=== PATIENT | male | born 1995 | race Caucasian/White ===

== ENCOUNTER 2018-10-08 19:39 | Emergency (ER) | payer OTHER ==
[2018-10-08 19:53] VITALS: RESP 18
[2018-10-08] MEDS ORDERED: KETOROLAC 30 MG/ML 1 ML VIAL IVP STA (22:26)
[2018-10-08 22:53] LABS: Basophils % (A) 0 %; Eosinophils # (A) 0.1 k/uL (0-0.7); Eosinophils % (A) 1 %; HGB 14.8 gm/dL (13.0-17.5); Lymphocytes # (A) 1.7 k/uL (1.0-4.8); Lymphocytes % (A) 21 %; MCH 28.9 pg (25.0-35.0); MCHC 33.6 g/dL (31.0-37.0); Mean Platelet Volume 6.8; Monocytes # (A) 0.5 k/uL (0-1.0); Monocytes % (A) 6 %; Neutrophils # (A) 5.5 k/uL (1.3-7.7); Neutrophils % (A) 70 %; Platelet Count 191 k/uL (150-450); RBC 5.11 m/uL (4.30-5.90); RDW 13.6 % (11.5-15.5); WBC 7.8 k/uL (4.0-11.0)
[2018-10-08 23:05] LABS: ALT 23 U/L (21-72); AST 15 U/L (17-59); Albumin 4.1 g/dL (3.5-5.0); Alkaline Phosphatase 25 U/L (38-126); Anion Gap 10 mmol/L; Blood Urea Nitrogen 7 mg/dL (9-20); Calcium 9.7 mg/dL (8.4-10.2); Carbon Dioxide 26 mmol/L (22-30); Chloride 103 mmol/L (98-107); Creatine Kinase 78 U/L (55-170); Glucose 91 mg/dL (74-99); Potassium 3.6 mmol/L (3.5-5.1); Sodium 139 mmol/L (137-145); Total Bilirubin 0.7 mg/dL (0.2-1.3); Total Protein 6.5 g/dL (6.3-8.2)
[2018-10-08] MEDS ORDERED: DIPH,PERTUS(ACELL)TETVAC-LF 0.5 ML VIAL IM ONE (23:06)
--- NOTE | 2018-10-08 23:12 | ED ---
Skin/Abscess/FB HPI - General Chief complaint: Skin/Abscess/Foreign Body Stated complaint: tattoo infection Time Seen by Provider: 10/08/18 21:49 Source: patient Mode of arrival: ambulatory Limitations: no limitations - History of Present Illness Initial comments: 22-year-old male patient presents to the emergency department today for complaints of pain and swelling to his right lower leg. Patient states he got a tattoo to the area last night at someone's home. States was not a professional establishment. Patient states that today he has had significant pain and swelling to the right posterior ankle or the tattoo was performed. Patient states that the pain has been progressively worsening throughout the day and has become severe. Patient states that he feels like the pain is now shooting up his leg and feels like it is going to give out on him. States that he had to be carried to the car in order to get here. Denies taking any pain reliever or using any other non-pharmacological pain interventions for this. He denies any drainage from the area. Denies fever or chills. He is unsure when his last tetanus vaccine was given. He denies any history of immune compromise or IV drug use. Denies taking any medications. Patient denies any recent rash, shortness breath, chest pain, abdominal pain, nausea, vomiting, diarrhea, constipation, back pain, numbness, tingling, dizziness, weakness, hematuria, dysuria, urinary urgency, urinary frequency, headache, visual changes , or any other complaints. - Related Data Home Medications Medication Instructions Recorded Confirmed ARIPiprazole [Abilify] 10 mg PO DAILY 05/29/15 08/04/15 guanFACINE HCL [Intuniv] 1 mg PO DAILY 05/29/15 08/04/15 Previous Rx's Medication Instructions Recorded Cephalexin [Keflex] 500 mg PO Q6H #40 cap 10/09/18 Ibuprofen [Motrin] 600 mg PO Q8HR PRN #30 tab 10/09/18 Allergies Allergy/AdvReac Type Severity Reaction Status Date / Time No Known Allergies Allergy Verified 10/08/18 19:53 Review of Systems ROS Statement: Those systems with pertinent positive or pertinent negative responses have been documented in the HPI. ROS Other: All systems not noted in ROS Statement are negative. Past Medical History Past Medical History: No Reported History Additional Past Medical History / Comment(s): Viral meningitis, bipolar disorder , ADHD History of Any Multi-Drug Resistant Organisms: None Reported Past Surgical History: Appendectomy Past Psychological History: Bipolar Smoking Status: Current every day smoker Past Alcohol Use History: Occasional Past Drug Use History: Marijuana General Exam Limitations: no limitations General appearance: alert, in no apparent distress, other (This is a well- developed, well-nourished adult male patient in no acute distress. Vital signs upon presentation are temperature 98.4F, pulse 98, respirations 18, blood pressure 116/75, pulse ox 98% on room air.) Eye exam: Present: normal appearance, PERRL, EOMI. Absent: scleral icterus, conjunctival injection, periorbital swelling ENT exam: Present: normal exam, normal oropharynx, mucous membranes moist Respiratory exam: Present: normal lung sounds bilaterally. Absent: respiratory distress, wheezes, rales, rhonchi, stridor Cardiovascular Exam: Present: regular rate, normal rhythm, normal heart sounds. Absent: systolic murmur, diastolic murmur, rubs, gallop, clicks Extremities exam: Present: full ROM, tenderness (Tenderness to the right posterior ankle), normal capillary refill, other (There is swelling and erythema surrounding a tattoo in the right posterior ankle, very tender to touch. Skin is otherwise pink, warm, dry. Cap refills less than 3 seconds. Pedal pulses 2+ and equal bilaterally.). Absent: normal inspection, pedal edema , joint swelling, calf tenderness Neurological exam: Present: alert, oriented X3, CN II-XII intact Psychiatric exam: Present: normal affect, normal mood Skin exam: Present: warm, dry, intact, normal color. Absent: rash Course Vital Signs 10/08/18 10/08/18 10/09/18 19:50 22:04 00:51 Temperature 98.4 F 97.7 F 98.5 F Pulse Rate 98 61 92 Respiratory 18 18 18 Rate Blood Pressure 116/75 112/71 132/80 O2 Sat by Pulse 98 97 96 Oximetry Medical Decision Making - Medical Decision Making 22-year-old male patient presented to the emergency department today for evaluation of increased pain and swelling surrounding a new tattoo he obtained yesterday. Physical examination did reveal swelling and surrounding erythema to a tattoo on the right posterior ankle. Patient's skin is very tender to touch, patient reported severe pain. Labs were reviewed and showed a normal white blood cell count, CRP was only 12.5, hemoglobin and sodium levels normal. Patient's x-ray was negative for any evidence of subcutaneous air or bony distraction. I did discuss findings and results with the patient. We will start him on Keflex at this time and he is instructed to apply [id number] triple antibiotic ointment and to cleanse the wound twice daily with warm water and antibacterial soap. We did discuss signs or symptoms of worsening infection. He is instructed to return immediately should any of these signs or symptoms develop. He is also instructed to follow-up with his clinic to have the wound reevaluated in 1-2 days. Return parameters were discussed in detail. He verbalizes understanding and agrees with this plan. - Lab Data Result diagrams: 10/08/18 22:30 10/08/18 22:30 Lab Results 10/08/18 10/08/18 10/08/18 Range/Units 22:30 22:30 22:30 WBC 7.8 (4.0-11.0) k/uL RBC 5.11 (4.30-5.90) m/uL Hgb 14.8 (13.0-17.5) gm/dL Hct 44.0 (39.0-53.0) % MCV 86.0 (80.0-100.0) fL MCH 28.9 (25.0-35.0) pg MCHC 33.6 (31.0-37.0) g/dL RDW 13.6 (11.5-15.5) % Plt Count 191 (150-450) k/uL Neutrophils % 70 % Lymphocytes % 21 % Monocytes % 6 % Eosinophils % 1 % Basophils % 0 % Neutrophils # 5.5 (1.3-7.7) k/uL Lymphocytes # 1.7 (1.0-4.8) k/uL Monocytes # 0.5 (0-1.0) k/uL Eosinophils # 0.1 (0-0.7) k/uL Basophils # 0.0 (0-0.2) k/uL Sodium 139 (137-145) mmol/L Potassium 3.6 (3.5-5.1) mmol/L Chloride 103 (98-107) mmol/L Carbon Dioxide 26 (22-30) mmol/L Anion Gap 10 mmol/L BUN 7 L (9-20) mg/dL Creatinine 0.95 (0.66-1.25) mg/dL Est GFR (CKD-EPI)AfAm >90 (>60 ml/min/1.73 sqM) Est GFR (CKD-EPI)NonAf >90 (>60 ml/min/1.73 sqM) Glucose 91 (74-99) mg/dL Plasma Lactic Acid Alistair 0.8 (0.7-2.0) mmol/L Calcium 9.7 (8.4-10.2) mg/dL Total Bilirubin 0.7 (0.2-1.3) mg/dL AST 15 L (17-59) U/L ALT 23 (21-72) U/L Alkaline Phosphatase 25 L (38-126) U/L Creatine Kinase 78 (55-170) U/L C-Reactive Protein (<10.0) mg/L Total Protein 6.5 (6.3-8.2) g/dL Albumin 4.1 (3.5-5.0) g/dL 10/08/18 Range/Units 22:30 WBC (4.0-11.0) k/uL RBC (4.30-5.90) m/uL Hgb (13.0-17.5) gm/dL Hct (39.0-53.0) % MCV (80.0-100.0) fL MCH (25.0-35.0) pg MCHC (31.0-37.0) g/dL RDW (11.5-15.5) % Plt Count (150-450) k/uL Neutrophils % % Lymphocytes % % Monocytes % % Eosinophils % % Basophils % % Neutrophils # (1.3-7.7) k/uL Lymphocytes # (1.0-4.8) k/uL Monocytes # (0-1.0) k/uL Eosinophils # (0-0.7) k/uL Basophils # (0-0.2) k/uL Sodium (137-145) mmol/L Potassium (3.5-5.1) mmol/L Chloride (98-107) mmol/L Carbon Dioxide (22-30) mmol/L Anion Gap mmol/L BUN (9-20) mg/dL Creatinine (0.66-1.25) mg/dL Est GFR (CKD-EPI)AfAm (>60 ml/min/1.73 sqM) Est GFR (CKD-EPI)NonAf (>60 ml/min/1.73 sqM) Glucose (74-99) mg/dL Plasma Lactic Acid Alistair (0.7-2.0) mmol/L Calcium (8.4-10.2) mg/dL Total Bilirubin (0.2-1.3) mg/dL AST (17-59) U/L ALT (21-72) U/L Alkaline Phosphatase (38-126) U/L Creatine Kinase (55-170) U/L C-Reactive Protein 12.5 H (<10.0) mg/L Total Protein (6.3-8.2) g/dL Albumin (3.5-5.0) g/dL - Radiology Data Radiology results: report reviewed, image reviewed Two-view x-ray of the tib-fib obtained to evaluate for subcutaneous air. There is no fracture or dislocation. Knee joint ankle joint appear intact. There is no bony destructive process. Impression by Dr. Arguelles shows negative right tibia and fibula exam. Disposition Clinical Impression: Cellulitis Disposition: HOME SELF-CARE Condition: Good Instructions: Cellulitis (ED) Additional Instructions: Apply antibiotic ointment to the infected area twice daily after cleansing with warm water and antibacterial soap. Complete antibiotic prescription in full even if you are feeling better. Follow up for recheck of the wound in 1-2 days. Return immediately if you develop fever, blisters, skin discoloration, or any other worsening or concerning symptoms. Prescriptions: Cephalexin [Keflex] 500 mg PO Q6H #40 cap Ibuprofen [Motrin] 600 mg PO Q8HR PRN #30 tab PRN Reason: Pain Is patient prescribed a controlled substance at d/c from ED?: No Referrals: [facility] [NON[facility]STAFF] - 1-2 days Darcy Olivarez MD [STAFF PHYSICIAN] - 1-2 days Time of Disposition: 00:03
--- NOTE | 2018-10-08 23:33 | XR ---
EXAMINATION TYPE: XR tibia fibula RT DATE OF EXAM: 10/08/2018 COMPARISON: NONE HISTORY: Infected tattoo TECHNIQUE: 2 views FINDINGS: I see no fracture nor dislocation. Knee joint and ankle joint appear intact. I see no bony destructive process. IMPRESSION: Negative right tibia and fibula exam.
[2018-10-09] MEDS ORDERED: CEPHALEXIN 500MG STARTER PACK 4 CAP BTL PO STA
[2018-10-09 00:52] VITALS: BP 132/80; PULSE 92; TEMP 98.5
== END 2018-10-09 00:52 | disposition home or self-care (01) ==
LOC: EC 19:39 → EEVIPCON 19:39 → EC 10-09 00:52
DX: L03.115 Cellulitis of right lower limb (principal); F31.9 Bipolar disorder, unspecified; F90.9 Attention-deficit hyperactivity disorder, unspecified type; F17.200 Nicotine dependence, unspecified, uncomplicated; Z79.899 Other long term (current) drug therapy; Z23 Encounter for immunization
CPT/HCPCS: 36415; 80053; 82550; 83605; 85025; 86140; 87040; 73590; 90715; 99283; 96374; 90471; J1885

== ENCOUNTER 2018-11-10 14:30 | Emergency (ER) | payer OTHER ==
[2018-11-10 14:39] VITALS: TEMP 98.2
[2018-11-10] MEDS ORDERED: ONDANSETRON 4 MG/2 ML VIAL IVP STA (15:37)
[2018-11-10] MEDS ORDERED: SODIUM CHLORIDE 0.9% 1,000 ML IV STA (15:37)
[2018-11-10] MEDS ORDERED: IPRATROPIUM-ALBUTEROL 3 ML NEB INHALATION STA (16:00)
[2018-11-10 16:03] LABS: Basophils % (A) 0 %; Eosinophils # (A) 0.1 k/uL (0-0.7); Eosinophils % (A) 1 %; HCT 46.7 % (39.0-53.0); HGB 15.3 gm/dL (13.0-17.5); Lymphocytes # (A) 0.7 k/uL (1.0-4.8); Lymphocytes % (A) 12 %; MCH 29.2 pg (25.0-35.0); MCHC 32.9 g/dL (31.0-37.0); Mean Platelet Volume 6.7; Monocytes # (A) 0.8 k/uL (0-1.0); Monocytes % (A) 13 %; Neutrophils # (A) 4.4 k/uL (1.3-7.7); Neutrophils % (A) 71 %; Platelet Count 165 k/uL (150-450); RBC 5.25 m/uL (4.30-5.90); RDW 13.9 % (11.5-15.5); WBC 6.2 k/uL (4.0-11.0)
[2018-11-10 16:05] LABS: Appearance,Urine Clear (Clear); Bilirubin,Urine Negative (Negative); Blood,Urine Negative (Negative); Color,Urine Yellow; Glucose,Urine (UA) Negative (Negative); Ketones,Urine 2+ (Negative); Leukocyte Esterase,Urine Negative (Negative); Mucus,Urine Few /hpf; Nitrite,Urine Negative (Negative); PH, Urine 6.5 (5.0-8.0); Protein,Urine 1+ (Negative); RBC,Urine 1 /hpf (0-5); Specific Gravity,Urine 1.027 (1.001-1.035); WBC,Urine <1 /hpf (0-5)
--- NOTE | 2018-11-10 16:10 | XR ---
EXAMINATION TYPE: XR chest 2V DATE OF EXAM: 11/10/2018 COMPARISON: 05/24/2015 HISTORY: Chest pain TECHNIQUE: Frontal and lateral views of the chest are obtained. FINDINGS: Heart and mediastinum are normal. Lungs are clear. Diaphragm is normal. Bony thorax appear s normal. IMPRESSION: Normal chest. No change.
[2018-11-10 16:16] LABS: ALT 24 U/L (21-72); AST 25 U/L (17-59); Albumin 4.4 g/dL (3.5-5.0); Alkaline Phosphatase 22 U/L (38-126); Amylase 33 U/L (30-110); Anion Gap 7 mmol/L; Blood Urea Nitrogen 8 mg/dL (9-20); Calcium 9.3 mg/dL (8.4-10.2); Carbon Dioxide 25 mmol/L (22-30); Chloride 107 mmol/L (98-107); Glucose 124 mg/dL (74-99); Lipase 37 U/L (23-300); Sodium 139 mmol/L (137-145); Total Bilirubin 0.6 mg/dL (0.2-1.3); Total Protein 7.1 g/dL (6.3-8.2)
[2018-11-10 16:24] LABS: Potassium 4.7 mmol/L (3.5-5.1)
--- NOTE | 2018-11-10 16:25 | ED ---
Nausea/Vomiting/Diarrhea HPI - General Chief complaint: Nausea/Vomiting/Diarrhea Stated complaint: Vomiting Time Seen by Provider: 11/10/18 15:25 Source: patient Limitations: no limitations - History of Present Illness Initial comments: 22-year-old male patient presents to the emergency department today with complaints of cough and vomiting. Patient's he has had cough for the last 2-3 days. Patient states that the cough is progressively worsened since its onset. States he is having nasal congestion and postnasal drainage. States that this morning he did start having vomiting. States he has vomited several times. He is unable to keep down any food or fluids. States he is having some midepigastric abdominal discomfort. He denies any constipation or diarrhea. Denies any fevers or chills with this. He denies any recent travel or sick contacts. Denies any hematemesis, hematochezia, or melena. Patient denies any recent rash, shortness breath, chest pain, back pain, numbness, tingling, dizziness, weakness, hematuria, dysuria, urinary urgency, urinary frequency, headache, visual changes, or any other complaints. - Related Data Home Medications Medication Instructions Recorded Confirmed ARIPiprazole [Abilify] 10 mg PO DAILY 05/29/15 08/04/15 guanFACINE HCL [Intuniv] 1 mg PO DAILY 05/29/15 08/04/15 Previous Rx's Medication Instructions Recorded Cephalexin [Keflex] 500 mg PO Q6H #40 cap 10/09/18 Ibuprofen [Motrin] 600 mg PO Q8HR PRN #30 tab 10/09/18 Ondansetron [Zofran ODT] 4 mg PO Q8HR PRN #10 tab 11/10/18 guaiFENesin-DM 600/30MG [Mucinex 1 each PO Q12HR #10 tab.er.12h 11/10/18 Dm] predniSONE 50 mg PO DAILY #5 tablet 11/10/18 Allergies Allergy/AdvReac Type Severity Reaction Status Date / Time No Known Allergies Allergy Verified 11/10/18 14:38 Review of Systems ROS Statement: Those systems with pertinent positive or pertinent negative responses have been documented in the HPI. ROS Other: All systems not noted in ROS Statement are negative. Past Medical History Past Medical History: No Reported History Additional Past Medical History / Comment(s): Viral meningitis, bipolar disorder , ADHD History of Any Multi-Drug Resistant Organisms: None Reported Past Surgical History: Appendectomy Past Psychological History: Bipolar, Schizophrenia Smoking Status: Current every day smoker Past Alcohol Use History: Occasional Past Drug Use History: Marijuana General Exam Limitations: no limitations General appearance: alert, in no apparent distress, other (This is a well- developed, well-nourished adult male patient in no acute distress. Vital signs upon presentation are temperature 98.2F, pulse 112, respirations 24, blood pressure 124/70, pulse ox 96% on room air.) Eye exam: Present: normal appearance, PERRL, EOMI. Absent: scleral icterus, conjunctival injection, periorbital swelling ENT exam: Present: normal exam, normal oropharynx, mucous membranes moist Respiratory exam: Absent: normal lung sounds bilaterally, respiratory distress, wheezes, rales, rhonchi, stridor Cardiovascular Exam: Present: regular rate, normal rhythm, normal heart sounds. Absent: systolic murmur, diastolic murmur, rubs, gallop, clicks GI/Abdominal exam: Present: soft, tenderness (Midepigastric tenderness), normal bowel sounds. Absent: distended, guarding, rebound, rigid Neurological exam: Present: alert, oriented X3, CN II-XII intact Psychiatric exam: Present: normal affect, normal mood Skin exam: Present: warm, dry, intact, normal color. Absent: rash Course Vital Signs 11/10/18 11/10/18 11/10/18 14:35 16:50 16:56 Temperature 98.2 F Pulse Rate 112 H 108 H 112 H Respiratory 24 Rate Blood Pressure 124/70 O2 Sat by Pulse 96 Oximetry 11/10/18 16:58 Temperature 98.2 F Pulse Rate 110 H Respiratory 18 Rate Blood Pressure 120/72 O2 Sat by Pulse 96 Oximetry Medical Decision Making - Medical Decision Making 22-year-old male patient presents to the emergency department today for evaluation of cough and vomiting. Physical examination did reveal some mild diffuse expiratory wheezing posteriorly. Patient's abdomen is soft and nontender. Labs reviewed and are unremarkable. Chest x-ray showed no acute cardio pulmonary process. We'll treat for acute bronchitis. Be given prescription for Zofran for the vomiting. Upon reevaluation patient states he is feeling much better. He is instructed to follow up with his primary care physician for recheck in 1-2 days. Return parameters were discussed in detail. He verbalizes understanding and agrees with this plan. - Lab Data Result diagrams: 11/10/18 15:46 11/10/18 15:46 Lab Results 11/10/18 11/10/18 11/10/18 Range/Units 15:46 15:46 15:46 WBC 6.2 (4.0-11.0) k/uL RBC 5.25 (4.30-5.90) m/uL Hgb 15.3 (13.0-17.5) gm/dL Hct 46.7 (39.0-53.0) % MCV 89.0 (80.0-100.0) fL MCH 29.2 (25.0-35.0) pg MCHC 32.9 (31.0-37.0) g/dL RDW 13.9 (11.5-15.5) % Plt Count 165 (150-450) k/uL Neutrophils % 71 % Lymphocytes % 12 % Monocytes % 13 % Eosinophils % 1 % Basophils % 0 % Neutrophils # 4.4 (1.3-7.7) k/uL Lymphocytes # 0.7 L (1.0-4.8) k/uL Monocytes # 0.8 (0-1.0) k/uL Eosinophils # 0.1 (0-0.7) k/uL Basophils # 0.0 (0-0.2) k/uL Sodium 139 (137-145) mmol/L Potassium 4.7 (3.5-5.1) mmol/L Chloride 107 (98-107) mmol/L Carbon Dioxide 25 (22-30) mmol/L Anion Gap 7 mmol/L BUN 8 L (9-20) mg/dL Creatinine 0.90 (0.66-1.25) mg/dL Est GFR (CKD-EPI)AfAm >90 (>60 ml/min/1.73 sqM) Est GFR (CKD-EPI)NonAf >90 (>60 ml/min/1.73 sqM) Glucose 124 H (74-99) mg/dL Calcium 9.3 (8.4-10.2) mg/dL Total Bilirubin 0.6 (0.2-1.3) mg/dL AST 25 (17-59) U/L ALT 24 (21-72) U/L Alkaline Phosphatase 22 L (38-126) U/L Total Protein 7.1 (6.3-8.2) g/dL Albumin 4.4 (3.5-5.0) g/dL Amylase 33 (30-110) U/L Lipase 37 (23-300) U/L Urine Color Urine Appearance (Clear) Urine pH (5.0-8.0) Ur Specific [place] (1.001-1.035) Urine Protein (Negative) Urine Glucose (UA) (Negative) Urine Ketones (Negative) Urine Blood (Negative) Urine Nitrite (Negative) Urine Bilirubin (Negative) Urine Urobilinogen (<2.0) mg/dL Ur Leukocyte Esterase (Negative) Urine RBC (0-5) /hpf Urine WBC (0-5) /hpf Urine Mucus (None) /hpf Influenza Type A RNA Not Detected (Not Detectd) Influenza Type B (PCR) Not Detected (Not Detectd) 11/10/18 Range/Units 15:46 WBC (4.0-11.0) k/uL RBC (4.30-5.90) m/uL Hgb (13.0-17.5) gm/dL Hct (39.0-53.0) % MCV (80.0-100.0) fL MCH (25.0-35.0) pg MCHC (31.0-37.0) g/dL RDW (11.5-15.5) % Plt Count (150-450) k/uL Neutrophils % % Lymphocytes % % Monocytes % % Eosinophils % % Basophils % % Neutrophils # (1.3-7.7) k/uL Lymphocytes # (1.0-4.8) k/uL Monocytes # (0-1.0) k/uL Eosinophils # (0-0.7) k/uL Basophils # (0-0.2) k/uL Sodium (137-145) mmol/L Potassium (3.5-5.1) mmol/L Chloride (98-107) mmol/L Carbon Dioxide (22-30) mmol/L Anion Gap mmol/L BUN (9-20) mg/dL Creatinine (0.66-1.25) mg/dL Est GFR (CKD-EPI)AfAm (>60 ml/min/1.73 sqM) Est GFR (CKD-EPI)NonAf (>60 ml/min/1.73 sqM) Glucose (74-99) mg/dL Calcium (8.4-10.2) mg/dL Total Bilirubin (0.2-1.3) mg/dL AST (17-59) U/L ALT (21-72) U/L Alkaline Phosphatase (38-126) U/L Total Protein (6.3-8.2) g/dL Albumin (3.5-5.0) g/dL Amylase (30-110) U/L Lipase (23-300) U/L Urine Color Yellow Urine Appearance Clear (Clear) Urine pH 6.5 (5.0-8.0) Ur Specific [place] 1.027 (1.001-1.035) Urine Protein 1+ H (Negative) Urine Glucose (UA) Negative (Negative) Urine Ketones 2+ H (Negative) Urine Blood Negative (Negative) Urine Nitrite Negative (Negative) Urine Bilirubin Negative (Negative) Urine Urobilinogen 6.0 (<2.0) mg/dL Ur Leukocyte Esterase Negative (Negative) Urine RBC 1 (0-5) /hpf Urine WBC <1 (0-5) /hpf Urine Mucus Few H (None) /hpf Influenza Type A RNA (Not Detectd) Influenza Type B (PCR) (Not Detectd) - Radiology Data Radiology results: report reviewed, image reviewed Two-view x-ray of the chest is obtained. Heart media's enema normal. Lungs are clear. Diaphragm is normal. Bony thorax appears normal. Impression by Dr. Arguelles shows normal chest with no change. Disposition Clinical Impression: Gastroenteritis, Acute bronchitis Disposition: HOME SELF-CARE Condition: Good Instructions: Acute Bronchitis (ED), Acute Nausea and Vomiting (ED) Additional Instructions: Increase fluids. Start with clear liquid diet and advance as tolerated. Take medication as directed. Return immediately for any new, worsening, or concerning symptoms. Prescriptions: guaiFENesin-DM 600/30MG [Mucinex Dm] 1 each PO Q12HR #10 tab.er.12h Ondansetron [Zofran ODT] 4 mg PO Q8HR PRN #10 tab PRN Reason: Nausea predniSONE 50 mg PO DAILY #5 tablet Is patient prescribed a controlled substance at d/c from ED?: No Referrals: [facility] [NON-STAFF] - 1-2 days Time of Disposition: 16:27
[2018-11-10 16:59] VITALS: BP 120/72; PULSE 110; RESP 18
== END 2018-11-10 16:59 | disposition home or self-care (01) ==
LOC: EC 14:30
DX: J20.9 Acute bronchitis, unspecified (principal); K52.9 Noninfective gastroenteritis and colitis, unspecified; F31.9 Bipolar disorder, unspecified; F20.9 Schizophrenia, unspecified; F90.9 Attention-deficit hyperactivity disorder, unspecified type; F17.200 Nicotine dependence, unspecified, uncomplicated; Z79.899 Other long term (current) drug therapy; Z90.49 Acquired absence of other specified parts of digestive tract
CPT/HCPCS: 36415; 94640; 80053; 82150; 83690; 85025; 81001; 87502; 71046; 99284; 96374; 96361; J2405

== ENCOUNTER 2020-03-22 12:42 | Emergency (ER) | payer OTHER ==
[2020-03-22 12:46] VITALS: BP 119/75; PULSE 93; RESP 18; TEMP 98
--- NOTE | 2020-03-22 13:24 | ED ---
General Adult HPI - General Chief complaint: Extremity Injury, Lower Stated complaint: Foot/ankle pain Time Seen by Provider: 03/22/20 12:49 Source: patient Mode of arrival: wheelchair Limitations: no limitations - History of Present Illness Initial comments: Dictation was produced using [employer] dictation software. please excuse any grammatical, word or spelling errors. This patient was cared for during a federal and state declared state of emergency secondary to Covid 19 Chief Complaint: 24-year-old male with left foot and left knee pain History of Present Illness: Patient is a 24-year-old male presents with left foot pain. Patient states yesterday he fell down steps. Mechanism of injury he describes as striking his foot anteriorly with his toes in a flexed position. She states that he's been limping. He also complains of some mild knee pain. He was urged him to the emergency department by family members who were junaid gedly in the medical field. The ROS documented in this emergency department record has been reviewed and confirmed by me. Those systems with pertinent positive or negative responses have been documented in the HPI. All other systems are other negative and/or noncontributory. PHYSICAL EXAM: General Impression: Alert and oriented x3, not in acute distress HEENT: Normocephalic atraumatic, extra-ocular movements intact, pupils equal and reactive to light bilaterally, mucous membranes moist. Cardiovascular: Heart regular rate and rhythm Chest: Able to complete full sentences, no retractions, no tachypnea Abdomen: abdomen soft, non-tender, non-distended, no organomegaly Musculoskeletal: Pulses present and equal in all extremities, no peripheral edema Left lower extremity: Tenderness about the knee joint. No knee effusion. He has exquisite tenderness about the distal metatarsal third through fifth digit. Patient does appear to be some mild erythema in that area. Motor: no focal deficits noted Neurological: CN II-XII grossly intact, no focal motor or sensory deficits noted Skin: Intact with no visualized rashes Psych: Normal affect and mood ED course: 24-year-old male presents with foot pain after fall. Vital signs upon arrival are within acceptable limits. X-rays obtained. Knee x-rays unremarkable. Foot x-ray shows oblique fractures through the third and fourth proximal phalanx. Patient does not have any skin injuries to suggest open fracture. Patient given soft shoe. Ice follow up with his primary care physician for outpatient management. Patient offered by mouth analgesia prescription he refused. Patient has no weightbearing restrictions at this time however he is told to not apply pressure to his toes. - Related Data Home Medications Medication Instructions Recorded Confirmed ARIPiprazole [Abilify] 10 mg PO DAILY 05/29/15 08/04/15 guanFACINE HCL [Intuniv] 1 mg PO DAILY 05/29/15 08/04/15 Previous Rx's Medication Instructions Recorded Cephalexin [Keflex] 500 mg PO Q6H #40 cap 10/09/18 Ibuprofen [Motrin] 600 mg PO Q8HR PRN #30 tab 10/09/18 Ondansetron [Zofran ODT] 4 mg PO Q8HR PRN #10 tab 11/10/18 guaiFENesin-DM 600/30MG [Mucinex 1 each PO Q12HR #10 tab.er.12h 11/10/18 Dm] predniSONE 50 mg PO DAILY #5 tablet 11/10/18 Allergies Allergy/AdvReac Type Severity Reaction Status Date / Time No Known Allergies Allergy Verified 03/22/20 12:46 Review of Systems ROS Statement: Those systems with pertinent positive or pertinent negative responses have been documented in the HPI. ROS Other: All systems not noted in ROS Statement are negative. Past Medical History Past Medical History: No Reported History Additional Past Medical History / Comment(s): Viral meningitis, bipolar disor toribio, ADHD History of Any Multi-Drug Resistant Organisms: None Reported Past Surgical History: Appendectomy Past Psychological History: ADD/ADHD, Bipolar, Schizophrenia Smoking Status: Current every day smoker Past Alcohol Use History: Occasional Past Drug Use History: Marijuana General Exam Limitations: no limitations Course Vital Signs 03/22/20 12:44 Temperature 98.0 F Pulse Rate 93 Respiratory 18 Rate Blood Pressure 119/75 O2 Sat by Pulse 98 Oximetry Disposition Clinical Impression: Toe fracture, left, Strain of left knee Disposition: HOME SELF-CARE Condition: Good Instructions (If sedation given, give patient instructions): Toe Fracture (ED) Is patient prescribed a controlled substance at d/c from ED?: No Referrals: None,Stated [Primary Care Provider] - 1-2 days Time of Disposition: 13:49
--- NOTE | 2020-03-22 13:39 | XR ---
EXAMINATION TYPE: XR knee complete LT , 3 VIEWS DATE OF EXAM ORDERED: 03/22/2020 HISTORY: fall. COMPARISON: None. FINDINGS: Joint spaces are well-maintained. No fracture, dislocation or knee joint effusion is seen. There appears to be an early enthesopathy arising from the proximal left fibular metaphysis. IMPRESSION: NO ACUTE OSSEOUS LESION.
--- NOTE | 2020-03-22 13:41 | XR ---
EXAMINATION TYPE: XR foot complete LT , 3 VIEWS DATE OF EXAM ORDERED: 03/22/2020 HISTORY: fall. COMPARISON: Previous study dated 11/28/2014. FINDINGS: There is a minimally displaced, oblique fracture through the mid diaphysis of the proximal phalanx of the left fourth digit. No other definite fracture is seen. IMPRESSION: MILDLY DISPLACED OBLIQUE FRACTURE THROUGH THE PROXIMAL DIAPHYSIS OF THE PROXIMAL PHALANX OF THE LEFT FOURTH DIGIT. CODE A: INITIAL ENCOUNTER FOR CLOSED FRACTURE
== END 2020-03-22 14:01 | disposition home or self-care (01) ==
LOC: EC 12:42
DX: S92.912A Unspecified fracture of left toe(s), initial encounter for closed fracture (principal); S86.812A Strain of other muscle(s) and tendon(s) at lower leg level, left leg, initial encounter; F90.9 Attention-deficit hyperactivity disorder, unspecified type; F20.9 Schizophrenia, unspecified; F31.9 Bipolar disorder, unspecified; F17.200 Nicotine dependence, unspecified, uncomplicated; Z79.899 Other long term (current) drug therapy; W10.9XXA Fall (on) (from) unspecified stairs and steps, initial encounter
CPT/HCPCS: 99283